=== PATIENT | male | born 1990 | race Caucasian/White ===

== ENCOUNTER 2023-07-08 09:15 | Outpatient (RCR) | payer OTHER, SELFPAY | END 2023-07-08 12:29 | disposition home or self-care (01) | PROVIDERS: PCP Family Medicine; Visit Provider Orthopaedic Surgery Sports Medicine | DX: S62.501A Fracture of unspecified phalanx of right thumb, initial encounter for closed fracture (principal); Z51.89 Encounter for other specified aftercare | CPT/HCPCS: 97110; 97165; L3913; X5282 ==

== ENCOUNTER 2023-12-13 14:03 | Outpatient (CLI) | payer BC, SELFPAY | END 2023-12-13 14:04 | disposition home or self-care (01) | LOC: LKVREF 14:04 | PROVIDERS: PCP Family Medicine; Visit Provider Family Medicine | DX: Z13.6 Encounter for screening for cardiovascular disorders (principal) | CPT/HCPCS: 80061 ==

== ENCOUNTER 2025-04-06 22:47 | Emergency (ER) | payer BC, SELFPAY ==
--- OUTSIDE RECORDS SUMMARY | 2021-09-17 11:09 | XMS_ITS | Continuity of Care Document ---
Author Organization [facility] Address [address] [place] [address] Phone Care Team Providers Care Bridal Consultant Name Role Phone Will Kash ANGUIANO Unavailable Unavailabl e Advance Directives Directive Yes / No Effective Date File Name No Information Encounters Encounter Description Practice Location Reason(s) For Visit Diagnoses Date Provider Providers Copied on Encounter [facility], [address] [place] [address], [id number], tel:[phone] [facility] No Information Will Kash. [address] [facility] [place], [place], [id number], [place]. tel:[phone] Family History Family Member Type Diagnosis Age At Onset No Information Payers Payer name Insurance type Covered democrat ID Authoriza tion(s) No Information Social History Type Description Quantity Date Captured Comments Sex Male Smoking Status No Information Chief Complaint And Reason For Visit No Information Reason For Referral Reason For Referral No Information History Of Present Illness Encounter Date Complaint History Of Prese nt Illness No Information Functional Status Date Functional Assessmen t No Information Instructions Date Instruction Additional Infor mation No Information Assessments Type Assessment Date No Information Patient Care Teams Name Effective Dates (start - stop) Status Members No Information
--- OUTSIDE RECORDS SUMMARY | 2021-09-17 11:09 | XMS_ITS | Continuity of Care Document ---
Author Organization [facility] Address [address] [place] [address] Phone Care Team Providers Care Deputy Treasurer Name Role Phone Will Kash ANGUIANO Unavailable Unavailabl e Advance Directives Directive Yes / No Effective Date File Name No Information Encounters Encounter Description Practice Location Reason(s) For Visit Diagnoses Date Provider Providers Copied on Encounter [facility], [address] [place] [address], [id number], tel:[phone] [facility] No Information Will Kash. [address] [facility], [place], [id number], [place]. tel:[phone] Family History Family Member Type Diagnosis Age At Onset No Information Payers Payer name Insurance type Covered constitution party ID Authoriza tion(s) No Information Social [...]
--- OUTSIDE RECORDS SUMMARY | 2025-04-06 22:49 | XMS_ITS | Clinical Summary ---
Author Organization [facility] Address [address], [place] [address] Care Team Providers Care Health Sanitarian Name Role Phone Vasile Alvarez MD Primary Care Provider [phone] Source Comments You are receiving this document as you are listed as the primary care provider,follow-up provider, or the patient has been referred to you for consultation.This is in compliance with the Medicare and[facility] Cent[facility] EHR Incentive Program,which states Providers who transition their patient to another setting of careor provider of care or refers their patient to another provider of care shouldprovide summary care record for each transition of care or referral. [employer] Allergies Active Allergy Reactions Criticality Noted Date Comments Amoxicillin 05/23/2004 PN: LW Reaction: Unknown Reaction Medications fluocinonide (LIDEX) 0.05 % cream Apply topically two times a day. To areas of rash. Do not apply to face, underarms, or groin. 30 g 1 8 Active Immunizations Immunization Administration Dates Next Due DTP 03/12/1996, 3,07/15/1991,05/18/1991 ,02/26/1991 Hib (HbOC) 04/15/1992,07/15/1991,05/18/1991 ,02/26/1991 MMR 04/15/1992 OPV, Trivalent (Orimune or tOPV) 10/22/1992,07/01,05/18/1991,02/26/1991 Varicella 08/14/1997(Deferred: Immune by Edgar sal) Social History Tobacco Use Types Packs/Day Years Used Date Smoking Tobacco: Every Day Cigarettes Smokeless Tobacco: Never Sex and Gender Information Value Date Recorded Sex Assigned at Not on file Legal Sex Male 5:01 AM CDT Gender Identity Not on file Sexual Orientation Not on file Last Filed Vital Signs Vital Sign Reading Time Taken Comments Blood Pressure 151/97 06/28/2012 4:30 PM APPLICATION SYSTEMS ARCHITECT Pulse 101 06/28/2012 4:30 PM APPLICATION SYSTEMS ARCHITECT Temperature 35.8 C (96.4 F) 06/28/2012 4:30 PM APPLICATION SYSTEMS ARCHITECT Respiratory Rate - - Oxygen Saturation - - Inhaled Oxygen Concentration - - Weight - - Height - - Body Mass Index - - Plan of Treatment Health Maintenance Due Date Last Done Comments Hep C Screening (Preventive Services) 1990 DTaP/Tdap/Td Vaccine (6 - Tdap) 2001 03/12/1996, 10/22/1992, 07/15/1991, Additional history exists HIV Screening (Preventive Services) 2006 Adult Preventive Visit 2008 HepB Vaccine (1) 2009 HPV Vaccine (1 - 3-dose SCDM series) 2017 COVID-19 Vaccine ( season) 2025 Influenza Vaccine (#1) 2025 Zoster/Shingles Vaccine (1 of 2) 2040 Hib Vaccine Completed 04/15/1992, 07/01, 05/18/1991, Additional history exists IPV (Polio) Vaccine Completed 10/22/1992, 07/15/1991, 05/18/1991, Additional history exists HepA Vaccine Aged Out No longer eligi ble based on patient's age to complete this topic MCV4 Vaccine Aged Out No longer eligi ble based on patient's age to complete this topic Meningococcal B Vaccine Aged Out No l onger eligible based on patient's age to complete this topic Pneumococcal Vaccine Aged Out No long er eligible based on patient's age to complete this topic Insurance [employer] * Guarantor: Maria T Finney Account Type Relation to Patient Date of Phone Billing Address Personal/Family 1969 [address] [facility] [address] [facility] [place] [address] Care Teams Health Sanitarian Relationship Specialty Start Date End Date Vasile Alvarez MD [address] [place] [address] PCP - General 06/19/1997
--- OUTSIDE RECORDS SUMMARY | 2025-04-06 22:49 | XMS_ITS | Clinical Summary ---
Author Organization [email or web address] Address [address] [place] [address] Care Team Providers Care Corporate Concierge Name Role Phone Sixto Wood Unavailable [phone] Pcp, No Primary Care Provider Unavailabl e Allergies No known active allergies Medications ALPRAZolam 2 mg tabletIndications: Panic attacks Take 1 tab daily prn panic 16 Tablet 2 1 Active buPROPion (WELLBUTRIN XL) 300 mg Extended-Release tabletIndications: Major depressive disorder, recurrent, in partial remission,Generali zed anxiety disorder Take 1 Tablet (300 mg) by mouth once daily. 90 Tablet 1 2 Active buPROPion (WELLBUTRIN SR) 150 mg Sustained-Release tabletIndications: Major depressive disorder, recurrent, in partial remission,Generali zed anxiety disorder Take 1 Tablet (150 mg) by mouth in the morning and 1 Tablet (150 mg) in the evening. 180 Tablet 2 2 Active Amphetamine-Dextro amphetamine (AdderalL) 30 mg tabletIndications: Attention deficit hyperactivity disorder (ADHD), predominantly inattentive type Take 1 Tablet (30 mg) by mouth in the morning and 1 Tablet (30 mg) in the evening. 60 Tablet 2 Active Active Problems Problem Noted Date Diagnosed Date Panic attacks 06/09/2021 Pain in thoracic spine 08/08/2020 Acute upper respiratory infection, unspecified 1 08/18/2019 Major depressive disorder, recurrent, in partial remission 06/14/2019 Attention deficit hyperactiv ity disorder (ADHD), predominantly inattentive type 03/31/2016 Infectious gastroenteritis and colitis, unspecif ied 10/07/2015 Generalized anxiety disorder 07/18/2009 Other acne 03/27/2008 Adjustment disorder with depressed mood 05/30/20 07 Resolved Problems Problem Noted Date Diagnosed Date Resolved Date Other general symptoms and signs 06/18/2020 12/18/2020 Intercostal pain 04/10/2020 12/18/2020 Generalized anxiety disorder 06/14/2019 12/18/2020 Attention deficit disorder w ithout mention of hyperactivity 02/22/2008 12/18/2020 Immunizations Immunization Administration Dates Next Due DTP 03/12/1996,10/22/1992,07/15/1991 ,05/18/1991,02/26/1991 HIB HbOC (HibTITER) 04/15/1992,07/15/1991,1990,02/26/1991 MMR 04/15/1992 Oral Polio Vaccine 10/22/1992,07/15/1991, 991,02/26/1991 Family History Medical History Relation Name Comments Diabetes Other maternal great grandma Heart Disease Other maternal great grandma Psychiatric illness Other cousins with ADHD Relation Name Status Comments Other Social History Tobacco Use Types Packs/Day Years Used Date Smoking Tobacco: Every Day Cigarettes Last attempted to quit: 10/01/2020 Smokeless Tobacco: Former Comments:E-cig Alcohol Use Standard Drinks/Week Comments Yes 0 (1 standard drink = 0.6 oz pur e alcohol) Occasinally PHQ-2 Answer Date Recorded PHQ-2 TOTAL SCORE 4 09/29/2021 Social Connections Answer Date Recorded Frequency of Communication with Friends and Fami ly Not on file 08/01/2021 Financial Resource Strain Answer Date R ecorded Difficulty of Paying Living Expenses Not on file 08/01/2021 Difficulty of Paying Living Expenses Not on file 08/01/2021 Sex and Gender Information Value Date Recorded Sex Assigned at Not on file Legal Sex Male 7:24 AM HIV CTS SPECIALIST Gender Identity Not on file Sexual Orientation Not on file Obstetrics History Last Filed Vital Signs Vital Sign Reading Time Taken Comments Blood Pressure 110/76 10/24/2020 2:00 PM CDT Pulse 78 10/24/2020 2:00 PM CDT Temperature - - Respiratory Rate 20 10/24/2020 2:00 PM CDT Oxygen Saturation - - Inhaled Oxygen Concentration - - Weight 74.8 kg (165 lb) 04/01/2021 7:11 AM CDT Height 180.3 cm (5' 11) 04/01/2021 7:11 AM CDT Body Mass Index 23.01 04/01/2021 7:11 AM CDT Plan of Treatment Health Maintenance Due Date Last Done Comments Tetanus booster 2001 Depression screening for age 12+ 2002 HIV for age 15-65 2005 Hepatitis C screening for ag e 18-79 2008 Hepatitis B series for 19+ ( 1 of 3 - 19+ 3-dose series) 2009 BMI (ht and wt on same day) for age 18+ 04/01/2022 04/01/2021 COVID-19 vaccine series ( - 2023- season) 2025 Influenza Vaccine (#1) 2025 RSV vaccine for adults or (1 - 1-dose 75+ series) 2065 Pneumococcal series for age 6-49 Aged Out No longer eligible based on patient's age to complete this topic Insurance [facility] * Guarantor: CHERYL DELAROSA Account Type Relation to Patient Date of Phone Billing Address Personal/Family Mother 1969 [address] [facility] [place] [address] Care Teams Corporate Concierge Relationship Specialty Start Date End Date Pcp, No . PCP - General 02/08/23 Pediatrics, [facility] [id number] [address] 10/21/20
[2025-04-06 23:01] VITALS: BP 148/99; PULSE 91; RESP 16; TEMP 36.6; O2SAT 16; BMI 23.8
--- NOTE | 2025-04-06 23:13 | CRLHL7_ITS ---
For Patients: As a result of the Century Cures Act, medical imaging exams and procedure reports are released immediately into your electronic medical record. You may view this report before your referring provider. If you have questions, please contact your health care provider. Indication: Worsening right midfoot pain following recent injury. Technique: Three views of the right foot. Comparison: None. Findings/Impression: Subacute appearing stress fracture of the 3rd metatarsal mid shaft. Lisfranc alignment maintained. No dislocation. Mild dorsal soft tissue swelling. Dictated by Kash De Jesus MD @ 04/06/2025 11:56:37 PM (Electronically Signed)
--- NOTE | 2025-04-06 23:14 | ED.GENADULT ---
HPI - General Adult General Chief complaint: Extremity Pain/Injury, Lower Stated complaint: right foot injury Time Seen by Provider: 04/06/25 22:57 History of Present Illness HPI narrative: Patient is a 34-year-old gentleman who slipped [place]. Since that time he has had progressive pain in the midfoot superiorly. He occasionally has worsening when he bends or twists unusually and now is pain is more severe after an unusual twisted several days ago. He has had no redness or skin breakdown. No other injuries. He has no other foot or ankle pain. Patient is pain with direct palpation over the superior aspect of his foot. Related Data Previous Rx's ?Medication ?Instructions ?Recorded bupropion HCl 150 mg 24 hr tablet, 150 mg PO QAM #30 tabs 12/18/24 extended release dextroamphetamine-amphetamine 20 20 mg PO BID #60 tabs 03/14/25 mg tablet Allergies Allergy/AdvReac Type Severity Reaction Status Date / Time No Known Allergies Allergy Unknown Unknown Verified 12/18/24 14:45 Review of Systems Status of ROS: Reports: 10 or more systems reviewed and unremarkable except as noted in History and below [facility] Medical History Avulsion fracture of right thumb ?S62.501A - Fracture of unspecified phalanx of right thumb, initial encounter for closed fracture (ICD-10) Sprain of anterior talofibular ligament of right ankle ?S93.491A - Sprain of other ligament of right ankle, initial encounter (ICD-10) History of major depression ?Z86.59 - Personal history of other mental and behavioral disorders (ICD-10) Social History Smoking Status: Current every day smoker What tobacco products do you use: cigarettes Smoking packs per day: 0.5 Smoking cigarettes per day: 10.0 Do you use any of these nicotine containing products: None Second hand tobacco smoke exposure: No How often do you have a drink containing alcohol: monthly or less How many standard drinks containing alcohol do you have on a typical day: 1 or 2 How often do you have six or more drinks on one occasion: Never AUDIT-C Alcohol total score: 1 Non-prescribed substance use: marijuana (any form) service: No Exam Narrative: Exam Narrative: EXAM GENERAL: Patient appears comfortable and well. EYES: No scleral icterus. LYMPH: No supraclavicular or cervical lymphadenopathy. SKIN: Visible skin seen during exam normal or with benign process only. EXT: Mild swelling of the foot primarily in the forefoot the superiorly. No erythema minimal pain to palpation. HEART: Regular rate and rhythm with no murmurs, rubs, or gallops. LUNGS: Clear to auscultation bilaterally with no crackles or wheezes. ABD: Soft, non tender, non distended. PSYCH: Good eye contact, speech is not pressured. Const: Vital Signs, click to edit/add: Vital Signs - 24 hr 04/06/25 23:01 04/06/25 23:40 Temperature 97.8 F Pulse Rate [Right Pulse Oximeter] 91 76 Respiratory Rate 16 18 Blood Pressure [Ri ght Upper Arm] 148/99 H 134/100 H Pulse Oximetry 16 L 99 Oxygen Delivery Me thod Room Air Room Air Course Course ED Course: Patient seen examined. X-ray pending. Vital Signs Vital signs: Initial Vital Signs Temperature 97.8 F 04/06/25 23:01 Temperature Source Temporal Artery Scan 04/06/25 23:01 Pulse Rate 91 04/06/25 23:01 Respiratory Rate 16 04/06/25 23:01 Blood Pressure 148/99 H 04/06/25 23:01 Blood Pressure Mean 115 H 04/06/25 23:01 Blood Pressure Position Semi-Fowlers 04/06/25 23:01 Pulse Oximetry 16 L 04/06/25 23:01 Oxygen Delivery Method Room Air 04/06/25 23:01 Vital Signs Temperature 97.8 F 04/06/25 23:01 Pulse Rate 91 04/06/25 23:01 Respiratory Rate 16 04/06/25 23:01 Blood Pressure 148/99 H 04/06/25 23:01 Pulse Oximetry 16 L 04/06/25 23:01 Oxygen Delivery Method Room Air 04/06/25 23:01 Temperature 97.8 F 04/06/25 23:01 Pulse Rate 76 04/06/25 23:40 Respiratory Rate 18 04/06/25 23:40 Blood Pressure 134/100 H 04/06/25 23:40 Pulse Oximetry 99 04/06/25 23:40 Oxygen Delivery Method Room Air 04/06/25 23:40 Medical Decision Making MDM Narrative Medical decision making narrative: Patient presents with right-sided foot pain. He on x-ray as a Lisfranc fracture of the 3rd metatarsal. He will be placed in a cam walker as he is unable weightbear even with a stiff shoe. Ice Tylenol Motrin and follow-up with his doctor in 2 weeks. Discharge Plan Discharge Clinical Impression: Lisfranc fracture Patient Disposition: Home, Self-Care Condition: Stable Instructions: Foot Fracture in Adults (ED) Additional Instructions: Cam walker with limited weight-bearing for 2 weeks Follow-up with your doctor in 2 weeks Ice Tylenol Advanced activity as tolerated. Activity Level: No Restrictions Discharge Diet: Regular Prescriptions: No Action bupropion HCl 150 mg tablet extended release 24 hr 150 mg PO QAM Qty: 30 0RF dextroamphetamine-amphetamine 20 mg tablet 20 mg PO BID Qty: 60 0RF Rx Instructions: administer doses at least 4-6 hours apart Follow Up/Referrals: Cordell Medellin MD [Primary Care Provider, Family Practice] Stand Alone Forms: [employer] Info Instructions
[2025-04-06 23:40] VITALS: BP 134/100; PULSE 76; RESP 18; O2SAT 99
== END 2025-04-07 00:31 | disposition home or self-care (01) ==
PROVIDERS: Emergency Provider Internal Medicine; PCP Family Medicine
DX: S92.334A Nondisplaced fracture of third metatarsal bone, right foot, initial encounter for closed fracture (principal); W01.0XXA Fall on same level from slipping, tripping and stumbling without subsequent striking against object, initial encounter
CPT/HCPCS: 73630; 99283

== ENCOUNTER 2025-04-07 12:52 | Emergency (ER) | payer BC, SELFPAY ==
--- OUTSIDE RECORDS SUMMARY | 2021-09-17 11:09 | XMS_ITS | Continuity of Care Document ---
Author Organization [facility] Address [address] [place] [address] Phone Care Team Providers Care Shank Scourer Name Role Phone Will Kash ANGUIANO Unavailable Unavailabl e Advance Directives Directive Yes / No Effective Date File Name No Information Encounters Encounter Description Practice Location Reason(s) For Visit Diagnoses Date Provider Providers Copied on Encounter [facility], [address] [place] [address], [id number], tel:[phone] [facility] No Information Will Kash. [address] [facility] [place], [place], [id number], [place]. tel:[phone] Family History Family Member Type Diagnosis Age At Onset No Information Payers Payer name Insurance type Covered libertarian ID Authoriza tion(s) No Information Social History [...]
--- OUTSIDE RECORDS SUMMARY | 2021-09-17 11:09 | XMS_ITS | Continuity of Care Document ---
Author Organization [facility] Address [address] [place] [address] Phone Care Team Providers Care Entry Level Accountant Name Role Phone Will Kash ANGUIANO Unavailable Unavailabl e Advance Directives Directive Yes / No Effective Date File Name No Information Encounters Encounter Description Practice Location Reason(s) For Visit Diagnoses Date Provider Providers Copied on Encounter [facility], [address] [place] [address], [id number], tel:[phone] [facility] No Information Will Kash. [address] [facility] [place], [place], [id number], [place]. tel:[phone] Family History Family Member Type Diagnosis Age At Onset No Information Payers Payer name Insurance type Covered alliance party ID Authoriza tion(s) No Information Social History [...]
--- OUTSIDE RECORDS SUMMARY | 2025-04-07 12:54 | XMS_ITS | Clinical Summary ---
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 PCP - General 02/08/23 [facility] [id number] [id number] 10/21/20
--- OUTSIDE RECORDS SUMMARY | 2025-04-07 12:54 | XMS_ITS | Clinical Summary ---
Author Organization [facility] Address [address], [place] [address] Care Team Providers Care College Or University Registrar Name Role Phone Vasile Alvarez MD Primary Care Provider [phone] Source Comments You are receiving this document as you are listed as the primary care provider,follow-up provider, or the patient has been referred to you for consultation.This is in compliance with the Medicare and[facility] EHR Incentive Program,which states Providers who transition their patient to another setting of careor provider of care or refers their patient to another provider of care shouldprovide summary care record for each transition of care or referral. [employer] Allergies Active Allergy Reactions Criticality Noted Date [...] Comments Blood Pressure 151/97 06/28/2012 4:30 PM TENNIS PLAYER Pulse 101 06/28/2012 4:30 PM TENNIS PLAYER Temperature 35.8 C (96.4 F) 06/28/2012 4:30 PM TENNIS PLAYER Respiratory Rate - - Oxygen Saturation - [...] of Phone Billing Address Personal/Family 1969 [address] [facility] [place] [address] [employer] [place] [address] Care Teams College Or University Registrar Relationship Specialty Start Date End Date Vasile Alvarez MD [address] [place] [address] PCP - General 06/19/1997
[2025-04-07 13:22] VITALS: BP 151/89; PULSE 98; RESP 18; TEMP 36.4; O2SAT 100; BMI 24.4
--- NOTE | 2025-04-07 13:32 | ED.GENADULT ---
HPI - General Adult General Chief complaint: Extremity Pain/Injury, Lower Stated complaint: ED visit follow-up, seeking prescription Time Seen by Provider: 04/07/25 13:16 History of Present Illness HPI narrative: Patient is a 34 year white male has had a foot injury few weeks ago, continues to have foot pain, felt that really flare up recently. He had an x-ray done last night that showed a Lisfranc deformity as well as a stress fracture. He has been given a Cam boot but he is not wearing it today. He presents for something to help him with pain at work. He just started a new job is concerned about that issue Related Data Previous Rx's ?Medication ?Instructions ?Recorded bupropion HCl 150 mg 24 hr tablet, 150 mg PO QAM #30 tabs 12/18/24 extended release dextroamphetamine-amphetamine 20 20 mg PO BID #60 tabs 03/14/25 mg tablet Allergies Allergy/AdvReac Type Severity Reaction Status Date / Time No Known Allergies Allergy Unknown Unknown Verified 12/18/24 14:45 Review of Systems Status of ROS: Reports: 6 or more systems reviewed and unremarkable except as noted in History and below [facility] Medical History Avulsion fracture of right thumb ?S62.501A - Fracture of unspecified phalanx of right thumb, initial encounter for closed fracture (ICD-10) Sprain of anterior talofibular ligament of right ankle ?S93.491A - Sprain of other ligament of right ankle, initial encounter (ICD-10) History of major depression ?Z86.59 - Personal history of other mental and behavioral disorders (ICD-10) Social History Smoking Status: Current every day smoker What tobacco products do you use: cigarettes Smoking packs per day: 0.5 Smoking cigarettes per day: 10.0 Do you use any of these nicotine containing products: None Second hand tobacco smoke exposure: No How often do you have a drink containing alcohol: monthly or less How many standard drinks containing alcohol do you have on a typical day: 1 or 2 How often do you have six or more drinks on one occasion: Never AUDIT-C Alcohol total score: 1 Non-prescribed substance use: marijuana (any form) service: No Exam Narrative: Exam Narrative: Objective: Right foot exam shows no swelling or it redness or warmth but it is tender over the 3rd meta tarsal dorsally. Const: Vital Signs, click to edit/add: Vital Signs - 24 hr 04/07/25 13:22 Temperature 97.6 F Pulse Rate [Pulse Oximeter] 98 Respiratory Rate 18 Blood Pressure [Ri ght Upper Arm] 151/89 H Pulse Oximetry 100 Oxygen Delivery Me thod Room Air Course Vital Signs Vital signs: Initial Vital Signs Temperature 97.6 F 04/07/25 13:22 Temperature Source Temporal Artery Scan 04/07/25 13:22 Pulse Rate 98 04/07/25 13:22 Respiratory Rate 18 04/07/25 13:22 Blood Pressure 151/89 H 04/07/25 13:22 Blood Pressure Mean 109 H 04/07/25 13:22 Pulse Oximetry 100 04/07/25 13:22 Oxygen Delivery Method Room Air 04/07/25 13:22 Vital Signs Temperature 97.6 F 04/07/25 13:22 Pulse Rate 98 04/07/25 13:22 Respiratory Rate 18 04/07/25 13:22 Blood Pressure 151/89 H 04/07/25 13:22 Pulse Oximetry 100 04/07/25 13:22 Oxygen Delivery Method Room Air 04/07/25 13:22 Temperature 97.6 F 04/07/25 13:22 Pulse Rate 98 04/07/25 13:22 Respiratory Rate 18 04/07/25 13:22 Blood Pressure 151/89 H 04/07/25 13:22 Pulse Oximetry 100 04/07/25 13:22 Oxygen Delivery Method Room Air 04/07/25 13:22 Medical Decision Making [facility] Narrative Medical decision making narrative: [age] year white male with a Lisfranc deformity, and 3rd metatarsal stress fracture. Would recommend continue the Cam boot nonweightbearing, ortho follow-up in the next couple of days this will be set up for him, Toradol as needed. Icing recommended as well as nonweightbearing until ortho follow-up. Addendum 2:00 p.m.: The patient left his crutches out by the waiting area, stated the nurses he did not need these. I would like him to be nonweightbearing and use the cam walker and then ortho follow-up but he is declining this. Discharge Plan Discharge Clinical Impression: Lisfranc dislocation, Stress fracture Patient Disposition: Home, Self-Care Condition: Stable Additional Instructions: Recommend nonweightbearing, Cam boot, Toradol as needed for pain. Recommend nonweightbearing. Ortho appointment scheduled for April 09 at 10:30AM, at the [facility]. [address] [place] [id number] Activity Level: Light activity Discharge Diet: Regular Prescriptions: No Action bupropion HCl 150 mg tablet extended release 24 hr 150 mg PO QAM Qty: 30 0RF dextroamphetamine-amphetamine 20 mg tablet 20 mg PO BID Qty: 60 0RF Rx Instructions: administer doses at least 4-6 hours apart Follow Up/Referrals: Heide Falcon PA-C [Physician Welding Machine Setter, Orthopedics] - 04/09/25 10:30 am Cordell Medellin MD [Primary Care Provider, Family Practice] Stand Alone Forms: [employer] Info Instructions
== END 2025-04-07 13:57 | disposition home or self-care (01) ==
LOC: ED 13:37
PROVIDERS: Emergency Provider Family Medicine; PCP Family Medicine
DX: M84.374A Stress fracture, right foot, initial encounter for fracture (principal); Z76.0 Encounter for issue of repeat prescription
CPT/HCPCS: 99283